=== PATIENT | female | born 1990 | race Caucasian/White ===

== ENCOUNTER 2017-09-14 10:40 | Emergency (ER) | payer BC ==
[~2017-09-14] VITALS: Ht 165.1 cm; Wt 81.6 kg
[2017-09-14] MEDS ORDERED: ONDANSETRON HCL INJ 2 MG/ML VIAL IV STA (11:01)
[2017-09-14] MEDS ORDERED: FAMOTIDINE 20 MG/2 ML VIAL IV STA (11:07)
[2017-09-14] MEDS ORDERED: LOPERAMIDE HCL 2 MG CAP PO ONE (11:15)
[2017-09-14] MEDS ORDERED: SODIUM CHLORIDE 0.9% 1000ML 1,000 ML IV SCH (11:15)
[2017-09-14] MEDS ORDERED: SYNTHROID50 MCG PO (11:32)
[2017-09-14] MEDS ORDERED: CYTOMEL5 MCG PO (11:32)
[2017-09-14] MEDS ORDERED: ONDANSETRON HCL 4 MG ORAL DISINTEGRATING TAB PO ONE (12:00)
[2017-09-14] MEDS ORDERED: SODIUM CHLORIDE 0.9% 1000ML 1,000 ML IV STA (12:02)
[2017-09-14] MEDS ORDERED: LEVOFLOXACIN 750MG/D5W 150ML 150 ML IV ONE (13:30)
[2017-09-14] MEDS ORDERED: METRONIDAZOLE 500MG/NS 100ML 100 ML IV ONE (13:30)
[2017-09-14] MEDS ORDERED: PROMETHAZINE 12.5MG/ NACL 0.9% 12.5 MG/50 ML BAG IV ONE (14:00)
[2017-09-14 14:08] VITALS: BP 132/68
== END 2017-09-14 14:12 | disposition home or self-care (01) ==
LOC: FSED 10:40
DX: R11.2 Nausea with vomiting, unspecified (principal); R19.7 Diarrhea, unspecified; E86.0 Dehydration
CPT/HCPCS: 80053; 80076; 81003; 81025; 85025; 99284; J2405; J7030

== ENCOUNTER 2021-04-08 17:31 | Emergency (ER) | payer BC, OTHER ==
[~2021-04-08] VITALS: Ht 165.1 cm; Wt 81.6 kg
[~2021-04-08 17:31] MED LIST: CYTOMEL5 MCG PO; SYNTHROID50 MCG PO
[2021-04-08] MEDS ORDERED: CASIRIVIMAB/IMDEVIMAB 10 ML in SODIUM CHLORIDE 0.9% 100 ML IV ONE (18:45)
== END 2021-04-08 20:22 | disposition home or self-care (01) ==
LOC: ER 18:00
DX: U07.1 COVID-19 (principal); R05.9 Cough, unspecified; E03.9 Hypothyroidism, unspecified
CPT/HCPCS: 99283; J7050